=== PATIENT | male | born 1980 | race Caucasian/White ===

== ENCOUNTER 2025-05-16 15:07 | Inpatient (IN) | payer OTHER ==
[~2025-05-16] VITALS: Ht 167.6 cm; Wt 73.9 kg
[2025-05-16] MEDS ORDERED: SULF-261 PO (15:41)
[2025-05-16] MEDS ORDERED: INSU100V50 SQ (15:41)
[2025-05-16] MEDS ORDERED: METF-1211 PO (15:41)
[2025-05-16] MEDS ORDERED: INSREG SQ (15:41)
[2025-05-16 16:33] LABS: PLATELET COUNT (AUTO) 281 K/uL (150-450); RED BLOOD CELL COUNT(AUTO) 5.47 MIL/uL (4.50-5.90); RED CELL DISTRIBUTION WIDTH 13.2 % (11.5-14.5); WHITE BLOOD COUNT (AUTO) 13.4 K/uL (4.5-11.0)
[2025-05-16 16:36] LABS: GLUCOMETER DEV NAME(LOC) ER.7; GLUCOSE,POINT OF CARE 330 MG/DL (70-110)
[2025-05-16] MEDS ORDERED: ZOLPIDEM TARTRATE 5 MG TABLET PO PRN (16:45)
[2025-05-16] MEDS ORDERED: ACETAMINOPHEN 325 MG TABLET PO PRN (16:45)
[2025-05-16] MEDS ORDERED: DEXTROSE 50%-WATER 25 GM/50 ML SYRINGE IVP PRN (16:45)
[2025-05-16] MEDS ORDERED: ONDANSETRON HCL 4 MG/2 ML VIAL IVP PRN (16:45)
[2025-05-16] MEDS ORDERED: MAGNESIUM HYDROXIDE SUSPENSION 30 ML UDCUP PO PRN (16:45)
[2025-05-16 16:46] LABS: CALCIUM, TOTAL 9.3 mg/dL (8.8-10.5); CREATININE 0.87 mg/dL (0.60-1.30); GLOMERULAR FILTR. RATE CALC > 60 mL/min (>60); GLUCOSE,RANDOM 330 mg/dL (70-110); SODIUM SERUM 134 mmol/L (136-145); UREA NITROGEN, BLOOD 25 mg/dL (7-18)
[2025-05-16 17:00] LABS: LACTIC ACID 3.5 mmol/L (0.4-2.0)
[2025-05-16] MEDS ORDERED: 0.9% SODIUM CHLORIDE 10 ML SYRINGE IVP PRN (17:15)
[2025-05-16] MEDS: INSULIN GLARGINE,HUM.REC.ANLOG 100 UNITS/ML SQ SCH (17:18)
[2025-05-16] MEDS: LIDOCAINE 1% 10 ML VIAL SQ ONE (17:19)
[2025-05-16] MEDS: OxyCODONE HCL/ACETAMINOPHEN 5-325 MG TABLET PO PRN (17:19)
[2025-05-16] MEDS: SODIUM CHLORIDE 0.9% 1,000 ML IV ONE ×2 (17:19)
[2025-05-16] MEDS: SODIUM CHLORIDE 0.9% 2,200 ML IV ONE (17:24)
[2025-05-16] MEDS ORDERED: VANCOMYCIN 1.75GM/WATER(PEG) 350 ML IV ONE (17:45)
[2025-05-16] MEDS: CefTRIAXone 1 GM/DEXTROSE 50 ML IV SCH (20:22)
[2025-05-16] MEDS: VANCOMYCIN 1.5 GM/WATER(PEG) 300 ML IV ONE (20:23)
[2025-05-16 21:30] VITALS: BP 131/80; PULSE 79; RESP 20; TEMP 98.1; O2SAT 98
[2025-05-16] MEDS: INSULIN LISPRO 100 UNITS/ML SQ PRN (22:12)
[2025-05-17 00:55] LABS: C.DIFF GDH ANTIGEN, Stool Negative (Negative); C.DIFF TOXINS A&B, Stool Negative (Negative)
[2025-05-17 03:31] LABS: GLUCOMETER DEV NAME(LOC) 4E.2; GLUCOSE,POINT OF CARE 283 MG/DL (70-110)
[2025-05-17 04:00] VITALS: BP 124/66; PULSE 70; RESP 16; TEMP 98.2; O2SAT 98
[2025-05-17 06:16] LABS: GLUCOMETER DEV NAME(LOC) 6S.2; GLUCOSE,POINT OF CARE 201 MG/DL (70-110)
[2025-05-17 07:16] LABS: CALCIUM, TOTAL 8.4 mg/dL (8.8-10.5); CREATININE 0.46 mg/dL (0.60-1.30); GLOMERULAR FILTR. RATE CALC > 60 mL/min (>60); GLUCOSE,RANDOM 200 mg/dL (70-110); SODIUM SERUM 136 mmol/L (136-145); UREA NITROGEN, BLOOD 13 mg/dL (7-18)
[2025-05-17 08:22] VITALS: BP 140/90; PULSE 73; RESP 18; TEMP 98; O2SAT 96
[2025-05-17] MEDS: VANCOMYCIN 1GM/WATER(PEG/NADA) 200 ML IV SCH (09:17)
[2025-05-17] MEDS: FAMOTIDINE 20 MG TABLET PO SCH (09:17)
[2025-05-17 11:50] LABS: GLUCOMETER DEV NAME(LOC) 6S.2; GLUCOSE,POINT OF CARE 236 MG/DL (70-110)
[2025-05-17] MEDS ORDERED: FAMO20 PO (14:06)
[2025-05-17] MEDS ORDERED: ACET-2247 PO (14:08)
[2025-05-17] MEDS ORDERED: MAGN-169 PO (14:09)
[2025-05-17] MEDS ORDERED: SULFAMETHOX/TRIMETH DS 800-160 MG/TABLET PO SCH (21:00)
== END 2025-05-17 15:26 | DRG 872 ==
LOC: EMS 15:07 → EDH 16:42 → 6S 21:30
PROVIDERS: ADMIT Internal Medicine; ATTEND Internal Medicine
PROC: 0H98XZZ Drainage of Buttock Skin, External Approach (ICD-10-PCS; principal; 2025-05-16)
DX: A41.9 Sepsis, unspecified organism (principal); L02.31 Cutaneous abscess of buttock; L03.818 Cellulitis of other sites; E11.65 Type 2 diabetes mellitus with hyperglycemia; Z79.4 Long term (current) use of insulin; Z88.0 Allergy status to penicillin; Z83.3 Family history of diabetes mellitus
CPT/HCPCS: 71045; 80048; 82962; 83605; 84145; 85025; 85610; 87040; 87324; 87340; 87449; 93005; 99285; J0696; J1815; J3490; J7030; 36415-L1; 36415-TC